=== PATIENT | female | born 1980 | race Caucasian/White ===

== ENCOUNTER 2022-10-04 08:47 | Emergency (ER) | payer SELFPAY ==
[2022-10-04 08:53] VITALS: BP 146/90; PULSE 84; RESP 18; TEMP 36.6; O2SAT 97; BMI 30.8
--- NOTE | 2022-10-04 08:56 | W.ED.FEMALGU ---
HPI - Female Genitourinary General: Chief complaint: Urogenital-Female Stated complaint: Heavy menstral bleeding Time Seen by Provider: 10/04/22 08:48 Source: patient Mode of arrival: ambulatory Limitations: no limitations History of Present Illness: Patient is a 42-year-old female who presents to ED today with heavy uterine bleeding over the past 3 days. Patient states she has been told that she is perimenopausal. She states her mother and grandmother went through menopause in their late 30s. She states about 6 months ago she had an episode of very heavy uterine bleeding and was seen at the [facility] ED and given what sounds like a 10-day course of progesterone. She states she had a good response to this. Patient does not have a primary care provider or STRIP STAMP STRAIGHTENER. She states since April she has had intermittent vaginal spotting. Reports some pelvic cramping. No urinary complaints. No fevers. Denies vaginal discharge/odor/new sexual partners/concerns for STDs. Reports she is soaking through one pad and one tampon an hour. MD elicited complaint: vaginal bleeding Onset (ago): day(s) Severity: moderate Vaginal discharge: none Vaginal bleeding: heavy Exacerbating factors: none Relieving factors: none Associated symptoms: Reports no associated symptoms; Deny abdominal pain, headache(s), nausea or vaginal discharge Treatment prior to arrival: none Sexual activity: No Patient : No Review of Systems Const: Denies: fever(s), chills, body aches, fatigue or malaise Card: Denies: chest pain Resp: Denies: dyspnea GI: Denies: abdominal pain, nausea, vomiting or diarrhea : Reports: vaginal bleeding; Denies: flank pain, difficulty voiding, dysuria, urinary frequency, urinary urgency, urinary hesitancy, genital pruritis, vaginal odor or vaginal discharge Musc: Denies: neck pain, back pain, extremity pain or joint pain Skin/Breast: Denies: rash Neuro: Denies: headache(s), numbness in extremities, weakness in extremities or sensory changes Physical Exam Const: COMMON NORMALS: no acute distress, average body habitus, patient oriented x3, no limitations, alert and well nourished Resp: COMMON NORMALS: normal respiratory effort and clear to auscultation bilaterally AUSCULTATION: clear to auscultation bilaterally Cardio: COMMON NORMALS: regular rate and regular rhythm RATE: regular rate RHYTHM: regular rhythm GI: COMMON NORMALS: Normal to inspection, nondistended, normoactive bowel sounds present, Soft to palpation, non-tender, No hepatosplenomegaly present and no masses PALPATION: Yes Soft to palpation and Yes No hepatosplenomegaly present : COMMON NORMALS: Yes no CVA tenderness BLADDER/KIDNEY EXAM: Yes no CVA tenderness Back/Pelvis: COMMON NORMALS: no CVA tenderness Extremity: COMMON NORMALS: normal to inspection GENERAL: Yes normal exam except as noted Neuro: ANDRES COMA SCALE: document [facility] findings [place] coma scale eye opening: Spontaneous Andres coma scale verbal response: Orientated Andres coma scale motor response: Obey commands [place] coma scale total score: 15 COMMON NORMALS: patient oriented x3 SENSORIUM/ORIENTATION: Yes alert Skin: COMMON NORMALS: no rashes or lesions noted GENERAL SKIN EXAM: no rashes or lesions noted Course Vital Signs: Vital signs: Vital Signs Temperature 97.9 F 10/04/22 08:53 Pulse Rate 78 10/04/22 10:11 Respiratory Rate 18 10/04/22 08:53 Blood Pressure 121/78 10/04/22 10:11 Pulse Oximetry 97 10/04/22 08:53 Oxygen Delivery Me thod Room Air 10/04/22 08:53 MDM - Female Medical Decision Making Patient arrives in no acute distress. Her H&H is normal. Orthostatics are negative. She is hemodynamically stable. Patient needs follow-up with STRIP STAMP STRAIGHTENER to establish etiology of her uterine bleeding. Certainly this could be secondary to perimenopause but she needs further evaluation into possible other etiologies. Patient will be placed on progesterone to help with her heavy bleeding. Return to ED precautions given. Case management referral for STRIP STAMP STRAIGHTENER was placed. Lab Data 10/04/22 09:24 10/04/22 09:24 Laboratory Results WBC 9.6 10^3/uL (4.0-10.0) 10/04/22 09:24 RBC 4.67 10^6/uL (4.1-5.3) 10/04/22 09:24 Hgb 13.9 g/dL (11.5-15.3) 10/04/22 09:24 Hct 41.8 % (37.0-47.0) 10/04/22 09:24 MCV 89.5 fl (81-99) 10/04/22 09:24 MCH 29.8 pg (28.0-34.0) 10/04/22 09:24 MCHC 33.3 g/dL (30.0-36.0) 10/04/22 09:24 RDW 13.1 % (12.1-15.1) 10/04/22 09:24 Plt Count 247 10^3/cmm (130-400) 10/04/22 09:24 MPV 10.4 fL (7.4-10.4) 10/04/22 09:24 Neut % (Auto) 73.1 % 10/04/22 09:24 Lymph % (Auto) 20.6 % 10/04/22 09:24 [place] % (Auto) 4.5 % 10/04/22 09:24 Eos % (Auto) 0.9 % 10/04/22 09:24 Baso % (Auto) 0.5 % 10/04/22 09:24 Neut # (Auto) 7.01 10^3/uL (1.8-7.7) 10/04/22 09:24 Lymph # (Auto) 2.0 10^3/uL (0.8-4.8) 10/04/22 09:24 [place] # (Auto) 0.4 10^3/uL (0.2-0.9) 10/04/22 09:24 Eos # (Auto) 0.1 10^3/uL (0.0-0.8) 10/04/22 09:24 Baso # (Auto) 0.1 10^3/uL (0.0-0.1) 10/04/22 09:24 Nucleated RBC % (auto) 0 % 10/04/22 09:24 Nucleated RBCs # 0.0 /100WBC 10/04/22 09:24 Sodium 137 mmol/L (136-145) 10/04/22 09:24 Potassium 4.0 mmol/L (3.5-5.1) 10/04/22 09:24 Chloride 103 mmol/L (98-107) 10/04/22 09:24 Carbon Dioxide 24 mmol/L (22-29) 10/04/22 09:24 Anion Gap 14.0 (5-19) 10/04/22 09:24 BUN 7 mg/dL (6-20) 10/04/22 09:24 Creatinine 0.5 mg/dL (0.5-0.9) 10/04/22 09:24 GFR Calculation 134.0 mL/min (90-130) H 10/04/22 09:24 Glucose 86 mg/dL (65-115) 10/04/22 09:24 Calculated Osmolality 281 mOsm/kg (285-295) L 10/04/22 09:24 Calcium 9.3 mg/dL (8.5-10.5) 10/04/22 09:24 Total Bilirubin 0.4 mg/dL (0.15-1.2) 10/04/22 09:24 AST 15 U/L (0-32) 10/04/22 09:24 ALT 15 U/L (0-33) 10/04/22 09:24 Alkaline Phosphatase 81 U/L (35-105) 10/04/22 09:24 Total Protein 7.2 g/dL (6.6-8.7) 10/04/22 09:24 Albumin 4.4 g/dL (3.5-5.2) 10/04/22 09:24 Globulin 2.8 g/dL (1.3-4.6) 10/04/22 09:24 HCG, Qual Negative (Negative) 10/04/22 09:24 Discharge Plan Discharge Patient Disposition: Home Clinical Impression: Abnormal uterine bleeding Condition: Stable Prescriptions: New medroxyprogesterone 10 mg tablet 10 mg PO DAILY 10 Days Qty: 10 0RF No Action acetaminophen 500 mg Tablet 1,500 mg PO Q6H PRN (Reason: Pain) Discharge Orders: Discharge ED (Routine); Ordered 10/04/22 Ordered By: Lolly Fuentes Referrals: [facility] [Other] Activity Restrictions/Additional Instructions: As we discussed it is very important that you follow-up with gynecology. I have placed a case management referral for this and they should reach out to you this week to help set you up with this appointment. You have been given paperwork for the financial auditor/tony program. You need to return to the emergency department for worsening or severe vaginal bleeding, abdominal pain, fevers, lightheadedness/dizziness/passing out episodes, or any other concerns you may have. Coding Level of Care Code ED Roller Stainer for Adriana Mackey
[2022-10-04 09:33] LABS: Basophils # 0.1 10^3/uL (0.0-0.1); Basophils % 0.5 %; Eosinophils # 0.1 10^3/uL (0.0-0.8); Eosinophils % 0.9 %; Hematocrit 41.8 % (37.0-47.0); Hemoglobin 13.9 g/dL (11.5-15.3); Lymphocytes % 20.6 %; Mean Corpuscular HGB Conc 33.3 g/dL (30.0-36.0); Mean Corpuscular Hemoglobin 29.8 pg (28.0-34.0); Mean Corpuscular Volume 89.5 fl (81-99); Mean Platelet Volume 10.4 fL (7.4-10.4); Monocytes # 0.4 10^3/uL (0.2-0.9); Monocytes % 4.5 %; Neutrophils # 7.01 10^3/uL (1.8-7.7); Neutrophils % 73.1 %; Nucleated Red Blood Cells % 0 %; Platelet Count 247 10^3/cmm (130-400); Red Blood Count 4.67 10^6/uL (4.1-5.3); Red Cell Distribution Width 13.1 % (12.1-15.1); White Blood Count 9.6 10^3/uL (4.0-10.0)
[2022-10-04 09:51] LABS: Alanine Aminotransferase 15 U/L (0-33); Albumin Level 4.4 g/dL (3.5-5.2); Alkaline Phosphatase 81 U/L (35-105); Aspartate Amino Transferase 15 U/L (0-32); Blood Urea Nitrogen 7 mg/dL (6-20); Calcium 9.3 mg/dL (8.5-10.5); Carbon Dioxide 24 mmol/L (22-29); Chloride 103 mmol/L (98-107); Globulin 2.8 g/dL (1.3-4.6); Glucose 86 mg/dL (65-115); Osmolality Calculated 281 mOsm/kg (285-295); Sodium 137 mmol/L (136-145); Total Bilirubin 0.4 mg/dL (0.15-1.2); Total Protein 7.2 g/dL (6.6-8.7)
[2022-10-04 10:00] LABS: HCG, Serum Qual Negative (Negative)
[2022-10-04 10:11] VITALS: BP 121/78; BP 122/85; BP 134/87; PULSE 77; PULSE 78; PULSE 89
--- NOTE | 2022-10-04 11:19 | DCPLANNER ---
Addendum entered by Joanie Cam 10/22/22 15:39: catering sales manager received the following message from the [facility] [[email or web address]] regarding follow up appointment: Patient never responeded to letter to be scheduled//JS On 10/07/22 @ 09:54 Shabana Bah Wrote To Joanie Cam Joanna attempted to call patient again on 10/06/22, LVM. NO call back from patient so letter sent today//JS On 10/05/22 @ 09:25 Shabana Bah Wrote To [facility] Front Office Attempted to call patient, LVM//JS Addendum entered by Joanie Cam 10/07/22 10:36: catering sales manager received the following message from the [facility] regarding follow up appointment: Joanna attempted to call patient again on 10/06/22, LVM. NO call back from patient so letter sent today//JS On 10/05/22 @ 09:25 Shabana Bah Wrote To [facility] Front Office Attempted to call patient, LVM//JS Original Note: catering sales manager had message to schedule a follow up appointment for patient with MANUFACTURING MAINTENANCE MANAGER. catering sales manager sent patients information to the front office staff at [facility]. Patients information will be printed and reviewed. Clinic will call patient with appointment information.
--- NOTE | 2022-10-04 14:12 | DCPLANNER ---
sports betting manager called patient due to no primary care physician - no answer at this time.
== END 2022-10-04 11:20 | disposition home or self-care (01) ==
PROVIDERS: Emergency Provider Physician Assistant
DX: N93.9 Abnormal uterine and vaginal bleeding, unspecified (principal)
CPT/HCPCS: 80053; 84703; 85025; 99283